=== PATIENT | male | born 1960 | race Caucasian/White ===

== ENCOUNTER 2020-04-08 14:10 | Inpatient (IN) | payer OTHER ==
[~2020-04-08] VITALS: Ht 167.6 cm; Wt 42.9 kg
[~2020-04-08 14:10] MED LIST: DULO30; DULO60; Daily Multiple1 EACH PO; FISH1000; FLUT44OIA; Flonase 0.05% N16 GM; GABA300 PO; Ginkgo Biloba40 M1 PO; Hydrochlorothia25 MG PO; LOSHYD; MONT10T PO; NAPR500 PO; NAPR500EC; OMEP20ER; Omeprazole20 M1 PO; POTA10T PO; QVAR7.3 G1; SIMV5; UBID10; VERA80; VITAMIN D32000 UNIT PO
[2020-04-08 14:52] LABS: BASOPHILS ABSOLUTE AUTO 0.02 K/mm3 (0.00-0.23); BASOPHILS PERCENT AUTO 0 % (0-2); EOSINOPHILS ABSOLUTE AUTO 0.01 K/mm3 (0.00-0.68); EOSINOPHILS PERCENT AUTO 0 % (0-6); Hematocrit 39.9 % (37.0-53.0); Hemoglobin 14.5 g/dL (13.5-17.5); IMMATURE GRAN ABSOLUTE AUTO 0.02 K/mm3 (0.00-0.10); IMMATURE GRAN PERCENT AUTO 0 % (0-1); LYMPHOCYTES ABSOLUTE AUTO 1.33 K/mm3 (0.84-5.20); LYMPHOCYTES PERCENT AUTO 12 % (21-46); MONOCYTES ABSOLUTE AUTO 0.84 K/mm3 (0.16-1.47); MONOCYTES PERCENT AUTO 7 % (4-13); Mean Corpuscular HGB 34.8 pg (26.0-34.0); Mean Corpuscular HGB Conc 36.3 g/dL (31.5-36.5); Mean Corpuscular Volume 96 fL (80-100); Mean Platelet Volume 9.8 fL (9.1-12.4); NEUTROPHILS ABSOLUTE AUTO 9.17 K/mm3 (1.96-9.15); NEUTROPHILS PERCENT AUTO 80 % (41-73); Platelet Count 255 K/mm3 (150-400); RDW Coefficient Variation 12.9 % (11.7-14.2); RDW Standard Deviation 45.4 fL (35.1-46.3); Red Blood Cell Count 4.17 M/mm3 (4.30-5.90); White Blood Cell Count 11.39 K/mm3 (4.00-11.30)
[2020-04-08 15:09] LABS: Alanine Aminotransfer (ALT/SGP 47 U/L (12-78); Albumin, Blood 3.6 g/dL (3.4-5.0); Albumin/Globulin Ratio 1.1 (0.8-1.8); Alk Phos 64 U/L (50-136); Anion Gap 11 mmol/L (6-16); Aspartate Aminotrans (AST/SGOT 56 U/L (12-37); Bilirubin, Total 0.8 mg/dL (0.1-1.0); Blood Urea Nitrogen 8 mg/dL (8-24); Bun/Creatinine Ratio 16.7 (12.0-20.0); CO2, Blood 26 mmol/L (21-32); Calcium, Blood 9.2 mg/dL (8.5-10.1); Chloride, Blood 95 mmol/L (98-108); Creatinine, Blood 0.48 mg/dL (0.60-1.20); Globulin, Blood 3.2 g/dL (2.2-4.0); Glomerular Filtration Rate >60 (60-); Glucose, Blood 102 mg/dL (70-99); Sodium, Blood 132 mmol/L (136-145); Total Protein, Blood 6.8 g/dL (6.4-8.2)
[2020-04-08] MEDS ORDERED: FLEVOXIN TABLE1 EACH PO (15:31)
[2020-04-08] MEDS ORDERED: Milk Thistle175 M1 PO (15:32)
[2020-04-08 17:54] LABS: Source, Urine Clean Catch
[2020-04-08 18:05] LABS: Troponin I <0.015 ng/mL (0.000-0.040)
[2020-04-08 18:15] LABS: Magnesium, Blood <0.2 mg/dL (1.6-2.4)
[2020-04-08 18:27] LABS: Appearance, Urine Clear (Clear); Bilirubin, Urine Neg (Neg); Blood, Urine Neg (Neg); Color, Urine Yellow (P-Yellow); Glucose Qualitative, Urine Neg (Neg); Ketones, Urine 4+ (Neg); Leukocyte Esterase, Urine Neg (Neg); Nitrite, Urine Neg (Neg); Protein, Urine 1+ (Neg); Urobilinogen, Urine NORM (Normal)
[2020-04-08] MEDS ORDERED: VERAPAMIL ER120 M1 PO (18:37)
[2020-04-08] MEDS ORDERED: POTA10T PO (18:37)
[2020-04-08] MEDS ORDERED: SIMV40 PO (18:37)
[2020-04-08] MEDS ORDERED: MONT10T PO (18:38)
[2020-04-08] MEDS ORDERED: FISH OIL 1,2001 EAC7 PO (18:45)
[2020-04-08] MEDS ORDERED: CO Q-10 PO (18:46)
--- NOTE | 2020-04-09 | NUR ---
PT ADMITTED TO ROOM ICU 8 UNDER PCU STATUS. PT SLIDE TRANSFERRED TO BED. PT ARRIVES TO ROOM AT 2310 THIS EVENING. NO APPARENT DISTRESS. NO S/S SEIZURE ACTIVITIES. NO COMPLAINTS OF PAIN AT THIS TIME. DOES STATE THAT HE HAS BEEN LOSING A LOT OF WEIGHT OF LATE SECONDARY TO NOT HAVING AN APPETITE OR BEING ABLE TO "HOLD ANYTHING DOWN." WILL REVIEW CHART AND PLAN OF CARE FOR THIS PT.
[2020-04-09 03:33] LABS: BASOPHILS ABSOLUTE AUTO 0.05 K/mm3 (0.00-0.23); BASOPHILS PERCENT AUTO 0 % (0-2); EOSINOPHILS ABSOLUTE AUTO 0.05 K/mm3 (0.00-0.68); EOSINOPHILS PERCENT AUTO 0 % (0-6); Hematocrit 41.6 % (37.0-53.0); Hemoglobin 14.6 g/dL (13.5-17.5); IMMATURE GRAN ABSOLUTE AUTO 0.06 K/mm3 (0.00-0.10); IMMATURE GRAN PERCENT AUTO 0 % (0-1); LYMPHOCYTES ABSOLUTE AUTO 1.95 K/mm3 (0.84-5.20); LYMPHOCYTES PERCENT AUTO 12 % (21-46); MONOCYTES ABSOLUTE AUTO 1.62 K/mm3 (0.16-1.47); MONOCYTES PERCENT AUTO 10 % (4-13); Mean Corpuscular HGB 33.6 pg (26.0-34.0); Mean Corpuscular HGB Conc 35.1 g/dL (31.5-36.5); Mean Corpuscular Volume 96 fL (80-100); Mean Platelet Volume 9.7 fL (9.1-12.4); NEUTROPHILS ABSOLUTE AUTO 12.86 K/mm3 (1.96-9.15); NEUTROPHILS PERCENT AUTO 77 % (41-73); Platelet Count 250 K/mm3 (150-400); RDW Coefficient Variation 12.6 % (11.7-14.2); RDW Standard Deviation 44.1 fL (35.1-46.3); Red Blood Cell Count 4.34 M/mm3 (4.30-5.90); White Blood Cell Count 16.59 K/mm3 (4.00-11.30)
[2020-04-09 03:50] LABS: Magnesium, Blood 1.6 mg/dL (1.6-2.4)
[2020-04-09 03:51] LABS: Anion Gap 5 mmol/L (6-16); Blood Urea Nitrogen 5 mg/dL (8-24); Bun/Creatinine Ratio 9.2 (12.0-20.0); CO2, Blood 32 mmol/L (21-32); Calcium, Blood 9.1 mg/dL (8.5-10.1); Chloride, Blood 97 mmol/L (98-108); Creatinine, Blood 0.54 mg/dL (0.60-1.20); Glomerular Filtration Rate >60 (60-); Glucose, Blood 99 mg/dL (70-99); Potassium, Blood 2.8 mmol/L (3.5-5.5); Sodium, Blood 134 mmol/L (136-145)
--- NOTE | 2020-04-09 04:00 | NUR ---
PT RECEIVES ADDITIONAL 2 GRAMS MAG SULFATE AFTER CALL TO DR BARROS - HOSPITALIST. PT HAS BEEN DROWSY UPON ADMIT. WAS GOOD HISTORIAN. PLEASANT AND COOPERATIVE WITH CARE AND ASSESSMENT. HAS BEEN ABLE TO MOVE SELF ABOUT IN BED ON HIS OWN.
--- NOTE | 2020-04-09 06:20 | NUR ---
PT REMAINS IN BED SLEEPING. AM LABS REVEAL K+ AT 2.8. CALL MADE TO DR FAUST WHEREAS ORDER FOR POTASSIUM DESHAUN RECEIVED. NO CHANGES TO NOTE FROM PREVIOUS ASSESSMENT. WILL CONTINUE TO MONITOR PT, AND WILL REPORT OFF TO ONCOMING RN.
--- NOTE | 2020-04-09 10:25 | NUR ---
[place] of Care: Care assumed at 0700hr. Patient alert and oriented x4. Denies pain, discomfort, SOB, or dyspnea. VSS, spO2 96-98% on RA. Peripheral IV x1 to rt forearm patent and intact, infusing without difficulty. Plan to speak with Dr. Jaime this morning r/t repeat Chem-8 labs following infusion of IV KCl. Using urinal in bed to void without difficulty. Calm and cooperative with staff, makes needs known. Tolerated clear liquid breakfast without difficulty, will also speak with Dr. Jaime r/t advancing diet as tolerated. Adjusting own position in bed. Will continue to monitor.
[2020-04-09 14:17] LABS: Albumin, Blood 3.1 g/dL (3.4-5.0); Anion Gap 7 mmol/L (6-16); Blood Urea Nitrogen 5 mg/dL (8-24); Bun/Creatinine Ratio 10.8 (12.0-20.0); CO2, Blood 27 mmol/L (21-32); Calcium, Blood 8.1 mg/dL (8.5-10.1); Chloride, Blood 98 mmol/L (98-108); Creatinine, Blood 0.47 mg/dL (0.60-1.20); Glomerular Filtration Rate >60 (60-); Glucose, Blood 210 mg/dL (70-99); Magnesium, Blood 1.9 mg/dL (1.6-2.4); Phosphorus, Blood 1.2 mg/dL (2.5-4.9); Sodium, Blood 132 mmol/L (136-145)
--- NOTE | 2020-04-09 18:21 | NUR ---
Shift Summary: No significant changes throughout shift. Patient remains a/o x4, denies pain, discomfort, SOB, or dyspnea. VS remain stable spO2 94-98% on RA. Peripheral iv's remain patent and intact. Voiding in urinal without difficulty, light yellow, clear urine. Adjust own position in bed, makes needs known. Spoke with Dr. Jaime this morning r/t lab values and advancing diet. Received orders this morning for 40meq PO KCl, x1 g IV Magnesium, advance diet as tolerated, and repeat renal panel with phos after magnesium has finished infusing. Repeat labs obtained this afternoon, and results discussed with Dr. Jaime. Received orders at that time for 30mm Kphos IV, change LR at 100ml/hr to NS at 100ml/hr, and repeat renal panel with phos when Kphos finished infusing. Kphos continues to infuse at this time, nurse notify placed for ordering repeat lab values. Patient tolerated clear liquids for breakfast and lunch, diet then advanced to full liquid for dinner tray, also tolerated without difficulty. Patient resting comfortably at this time, with at bedside. Will continue to monitor until report to NOC shift RN.
--- NOTE | 2020-04-09 19:20 | NUR ---
ASSUMED CARE OF PT, HE IS RESTING QUIETLY RECLINING IN BED, DENIES NEEDS AT THIS TIME.
[2020-04-09 22:25] LABS: Magnesium, Blood 1.4 mg/dL (1.6-2.4)
[2020-04-09 22:26] LABS: Albumin, Blood 3.1 g/dL (3.4-5.0); Anion Gap 7 mmol/L (6-16); Blood Urea Nitrogen 6 mg/dL (8-24); Bun/Creatinine Ratio 15.5 (12.0-20.0); CO2, Blood 28 mmol/L (21-32); Calcium, Blood 8.3 mg/dL (8.5-10.1); Chloride, Blood 98 mmol/L (98-108); Creatinine, Blood 0.39 mg/dL (0.60-1.20); Glomerular Filtration Rate >60 (60-); Glucose, Blood 63 mg/dL (70-99); Phosphorus, Blood 2.7 mg/dL (2.5-4.9); Potassium, Blood 3.6 mmol/L (3.5-5.5); Sodium, Blood 133 mmol/L (136-145)
--- NOTE | 2020-04-10 00:21 | NUR ---
PT RECEIVED FROM ICU WITH DX OF N/V. ALSO R/O COVID. PLACED ON PRECAUTIONS. ORIENTED TO ROOM, NOTED SEEMS UNSTEADY, INSTRUCTED TO USE CALL LIGHT PRIOR TO GETTING OUT OF BED FOR SAFETY REASINS, CALL LIGHT IN REACH. HOB ELEVATED FOR COMFORT. NS INFUSING AT 100 ML/HR.
--- NOTE | 2020-04-10 03:21 | NUR ---
SHIFT SUMMARY PT WAS TRANSFERRED FROM ICU TO FLOOR EARLIER, IVF OF NS INFUSING, RECEIVED MAGNESIUM IV PER MD ORDERS - SEE MAR FOR DETAILS. REMAINS IN ISOLATION UNTIL COVID IS RULED OUT. ALERT AND ORIENTED, BUT UNSTEADY ON FEET. INSTRUCTED TO USE CALL LIGHT BEFORE GETTING OUT OF BED, BED ALARM ON, CALL LIGHT IN REACH.
[2020-04-10 06:05] LABS: BASOPHILS ABSOLUTE AUTO 0.04 K/mm3 (0.00-0.23); BASOPHILS PERCENT AUTO 0 % (0-2); EOSINOPHILS PERCENT AUTO 1 % (0-6); Hematocrit 37.4 % (37.0-53.0); Hemoglobin 13.3 g/dL (13.5-17.5); IMMATURE GRAN ABSOLUTE AUTO 0.04 K/mm3 (0.00-0.10); IMMATURE GRAN PERCENT AUTO 0 % (0-1); LYMPHOCYTES ABSOLUTE AUTO 1.95 K/mm3 (0.84-5.20); LYMPHOCYTES PERCENT AUTO 17 % (21-46); MONOCYTES ABSOLUTE AUTO 1.12 K/mm3 (0.16-1.47); MONOCYTES PERCENT AUTO 10 % (4-13); Mean Corpuscular HGB 34.9 pg (26.0-34.0); Mean Corpuscular HGB Conc 35.6 g/dL (31.5-36.5); Mean Corpuscular Volume 98 fL (80-100); Mean Platelet Volume 9.9 fL (9.1-12.4); NEUTROPHILS ABSOLUTE AUTO 8.45 K/mm3 (1.96-9.15); NEUTROPHILS PERCENT AUTO 72 % (41-73); Platelet Count 225 K/mm3 (150-400); RDW Coefficient Variation 12.8 % (11.7-14.2); RDW Standard Deviation 45.5 fL (35.1-46.3); Red Blood Cell Count 3.81 M/mm3 (4.30-5.90)
[2020-04-10 06:10] LABS: Anion Gap 6 mmol/L (6-16); Blood Urea Nitrogen 5 mg/dL (8-24); CO2, Blood 27 mmol/L (21-32); Calcium, Blood 7.8 mg/dL (8.5-10.1); Chloride, Blood 99 mmol/L (98-108); Creatinine, Blood 0.39 mg/dL (0.60-1.20); Glomerular Filtration Rate >60 (60-); Glucose, Blood 97 mg/dL (70-99); Magnesium, Blood 2.2 mg/dL (1.6-2.4); Phosphorus, Blood 1.3 mg/dL (2.5-4.9); Potassium, Blood 3.5 mmol/L (3.5-5.5); Sodium, Blood 132 mmol/L (136-145)
[2020-04-10] MEDS ORDERED: BENZ100A PO (15:52)
[2020-04-10] MEDS ORDERED: ONDA4ODT MM (15:53)
[2020-04-10] MEDS ORDERED: PANT40 PO (15:53)
--- NOTE | 2020-04-10 17:02 | NUR ---
PT DISCHARGED THE PT AND HIS VERBALIZED UNDERSTANDING OF THE DC INSTRUCTIONS, PT WAS REMINDED TO CALL FOR AND SCHEDULE FOLLOW UP APPOINTMENTS ON SUNDAY, THE PTS PRESCRIPTIONS WERE FAXED TO [facility] REQUESTED, THE PT TRANSFERED VIA WHEELCHAIR ACCOMPANIED BY THE TIMBER RIDER AND HIS , PT APPEARED TO BE BREATHING EASILY AT THE TIME OF DC
== END 2020-04-10 16:23 | disposition home health service (06) | DRG 391 ==
LOC: ER 14:10 → ICUE 22:57 → ICUW 22:57 → ICUE 23:00 → MEDS 04-09 23:55
PROVIDERS: Emergency Medicine; Internal Medicine; ADMIT Internal Medicine
DX: K29.00 Acute gastritis without bleeding (principal); E43 Unspecified severe protein-calorie malnutrition; E87.1 Hypo-osmolality and hyponatremia; G40.89 Other seizures; Z68.1 Body mass index [BMI] 19.9 or less, adult; E83.42 Hypomagnesemia; R11.2 Nausea with vomiting, unspecified; E87.6 Hypokalemia; R27.0 Ataxia, unspecified; I10 Essential (primary) hypertension; E78.5 Hyperlipidemia, unspecified; F17.210 Nicotine dependence, cigarettes, uncomplicated
CPT/HCPCS: 36415; 70450; 70551; 71045; 74177; 80048; 80053; 80069; 83605; 83690; 83735; 84443; 84484; 85025; 93005; 93010; 96361; 96365-59; 96367; 97110; 97116; 97162; 97166; 97530; 99285-25; A9270; C9113; J1953; J2060; J3475; J3480; J7030; J7060; J7120; Q0163; Q9967; U0003

== ENCOUNTER 2020-04-11 10:36 | Inpatient (IN) | payer OTHER ==
[~2020-04-11] VITALS: Ht 167.6 cm; Wt 46.1 kg
[~2020-04-11 10:36] MED LIST changes: +BENZ100A PO; +CO Q-10 100 MG1 EAC1 PO; +FISH OIL 1,2001 EAC7 PO; +FLEVOXIN TABLE1 EACH PO; +Milk Thistle175 M1 PO; +ONDA4ODT MM; +PANT40 PO; +SIMV40 PO; +VERAPAMIL ER120 M1 PO
[2020-04-11 11:24] LABS: BASOPHILS ABSOLUTE AUTO 0.04 K/mm3 (0.00-0.23); BASOPHILS PERCENT AUTO 0 % (0-2); EOSINOPHILS ABSOLUTE AUTO 0.08 K/mm3 (0.00-0.68); EOSINOPHILS PERCENT AUTO 1 % (0-6); Hematocrit 40.8 % (37.0-53.0); Hemoglobin 14.3 g/dL (13.5-17.5); IMMATURE GRAN ABSOLUTE AUTO 0.03 K/mm3 (0.00-0.10); IMMATURE GRAN PERCENT AUTO 0 % (0-1); LYMPHOCYTES ABSOLUTE AUTO 1.81 K/mm3 (0.84-5.20); LYMPHOCYTES PERCENT AUTO 18 % (21-46); MONOCYTES ABSOLUTE AUTO 0.92 K/mm3 (0.16-1.47); MONOCYTES PERCENT AUTO 9 % (4-13); Mean Corpuscular HGB 35.3 pg (26.0-34.0); Mean Corpuscular Volume 101 fL (80-100); Mean Platelet Volume 9.9 fL (9.1-12.4); NEUTROPHILS ABSOLUTE AUTO 7.22 K/mm3 (1.96-9.15); NEUTROPHILS PERCENT AUTO 72 % (41-73); Platelet Count 251 K/mm3 (150-400); RDW Coefficient Variation 12.7 % (11.7-14.2); RDW Standard Deviation 46.5 fL (35.1-46.3); Red Blood Cell Count 4.05 M/mm3 (4.30-5.90)
[2020-04-11 11:32] LABS: Alanine Aminotransfer (ALT/SGP 69 U/L (12-78); Albumin, Blood 3.5 g/dL (3.4-5.0); Albumin/Globulin Ratio 0.9 (0.8-1.8); Alk Phos 81 U/L (50-136); Anion Gap 5 mmol/L (6-16); Aspartate Aminotrans (AST/SGOT 56 U/L (12-37); Bilirubin, Total 0.8 mg/dL (0.1-1.0); Blood Urea Nitrogen 6 mg/dL (8-24); Bun/Creatinine Ratio 15.1 (12.0-20.0); CO2, Blood 29 mmol/L (21-32); Chloride, Blood 99 mmol/L (98-108); Globulin, Blood 3.7 g/dL (2.2-4.0); Glomerular Filtration Rate >60 (60-); Glucose, Blood 102 mg/dL (70-99); Magnesium, Blood 1.6 mg/dL (1.6-2.4); Phosphorus, Blood 2.2 mg/dL (2.5-4.9); Potassium, Blood 3.8 mmol/L (3.5-5.5); Sodium, Blood 133 mmol/L (136-145); Total Protein, Blood 7.2 g/dL (6.4-8.2)
[2020-04-11 13:40] LABS: Source, Urine Clean Catch
[2020-04-11 13:44] LABS: Appearance, Urine Clear (Clear); Bilirubin, Urine Neg (Neg); Blood, Urine Neg (Neg); Color, Urine Yellow (P-Yellow); Glucose Qualitative, Urine Neg (Neg); Ketones, Urine Neg (Neg); Leukocyte Esterase, Urine Neg (Neg); Nitrite, Urine Neg (Neg); Protein, Urine Neg (Neg); Urobilinogen, Urine NORM (Normal)
--- NOTE | 2020-04-11 18:32 | NUR ---
SHIFT SUMMARY- PT ARRIVED TO THE UNIT AT 1339. HE WAS ORIENTED TO THE ROOM. HE IS RUNNING ON IV FLUIDS. HE TOOK A SHOWER. AT BEDSIDE FOR SEVERAL HOURS.
--- NOTE | 2020-04-11 22:26 | NUR ---
SOME DISPLAY OF IRRITATION WITH STAFF HE TRIED TO GET OUT OF BED AND WAS ENCOURAGED TO BE SAFE. THEN LAUGHED. RELAYED INFORMATION OF PT LABILE BEHAVIOR AT HOME WHICH HEPLED HER MAKE THE DECISION TO BRING HIM BACK TO THE [facility] FOR TERATMENT. SHE ALSO SKED THAT WE NOT USE THE WORD "REHAB" IT SEEMED TO SET HIM OFF WHEN SHE USED IT AT HOME. IVF OF NS INFUSINT AT 75 ML/HR. IV THIAMINE INFUSING. CALL LIGHT IN REACH. RESTING QUIETLY AT THIS TIME. RAILS UP X 3
--- NOTE | 2020-04-12 03:23 | NUR ---
SHIFT SUMMARY EARLIER PT APPEARED QUITE CONFUSED, TRYING TO GET OUT OF BED WHEN THE IV WAS BEEPING. BECAME HOSTILE WITH STAFF BUT LATER WAS ABLE TO BE REDIRECTED. IVF ON NS INFUSING. RECEIVED IV THIAMINE EARLIER, HAS BEEN RESTING QUIETLY SINCE. CALL LIGHT IN REACH. CIWA 6 OR LESS.
[2020-04-12 05:41] LABS: Albumin, Blood 3.1 g/dL (3.4-5.0); Anion Gap 8 mmol/L (6-16); Blood Urea Nitrogen 9 mg/dL (8-24); Bun/Creatinine Ratio 20.7 (12.0-20.0); CO2, Blood 24 mmol/L (21-32); Calcium, Blood 8.7 mg/dL (8.5-10.1); Chloride, Blood 98 mmol/L (98-108); Creatinine, Blood 0.43 mg/dL (0.60-1.20); Glomerular Filtration Rate >60 (60-); Glucose, Blood 104 mg/dL (70-99); Magnesium, Blood 1.7 mg/dL (1.6-2.4); Phosphorus, Blood 2.6 mg/dL (2.5-4.9); Potassium, Blood 3.7 mmol/L (3.5-5.5); Sodium, Blood 130 mmol/L (136-145)
--- NOTE | 2020-04-12 19:31 | NUR ---
SHIFT SUMMARY: NO ACUTE CHANGES TO REPORT THIS SHIFT. PT ALERT; HX ETOH; OCC CONFUSION & HALLUCINATIONS; COOPERATIVE WITH CARE. REHYDRATION CONTINUING; AWAITING GI CONSULT-NO GI DR STAMP COLLECTOR TODAY. REPORT GIVEN TO ONCOMING RN.
--- NOTE | 2020-04-12 21:19 | NUR ---
DR Underwood notified of family request for liver function test. Liver function panel order for am.
--- NOTE | 2020-04-13 04:50 | NUR ---
59 year old Male who was just dc from [facility] readmitted with AMS. He is rousable & oriented without sx of acute withdrawl. PT says last drink was Sunday vauge about amt & type of etoh he consumes. PT up with standby assist voids large amts. On IV fluids with minimal oral intake. declined supplement. no complaints. Sleeping most of 12 hour shift.
[2020-04-13 05:52] LABS: Albumin/Globulin Ratio 0.9 (0.8-1.8); Bilirubin, Direct 0.1 mg/dL (0.0-0.3); Bilirubin, Indirect 0.4 mg/dL (0.1-0.7); Bilirubin, Total 0.5 mg/dL (0.1-1.0); Globulin, Blood 3.3 g/dL (2.2-4.0); Total Protein, Blood 6.3 g/dL (6.4-8.2)
--- NOTE | 2020-04-13 15:42 | NUR ---
04/13/20 1542 Lev Loving See Anesthesia record.
[2020-04-13] MEDS ORDERED: MAGNESIUM OXID500 MG PO (15:46)
[2020-04-13] MEDS ORDERED: Vitamin B Comple1 EA PO (15:47)
--- NOTE | 2020-04-13 19:24 | NUR ---
PATIENT DISCHARGE: PATIENT DISCHARGED TO HOME / XFR TO [facility] THIS SHIFT. MEDICATION RECONCILIATION COMPLETED; MED LSIT FAXED TO [facility]. DISCHARGE EDUCATION COMPLETED WITH PATIENT AND SPOUSE. PATIENT TRANSPORTED TO EXIT BY [facility] STAFF WITH WHEELCHAIR AT 1850. PATIENT DEPARTED [facility] VIA PRIVATE AUTO.
== END 2020-04-13 18:56 | disposition home health service (06) | DRG 640 ==
LOC: ER 10:36 → MEDS 13:30
PROVIDERS: Emergency Medicine; Internal Medicine; Student in an Organized Health Care Education/Training Program; ADMIT Internal Medicine
PROC: 0DB68ZX Excision of Stomach, Via Natural or Artificial Opening Endoscopic, Diagnostic (ICD-10-PCS; principal; 2020-04-13 17:30)
DX: E51.2 Wernicke's encephalopathy (principal); E43 Unspecified severe protein-calorie malnutrition; Z68.1 Body mass index [BMI] 19.9 or less, adult; E87.1 Hypo-osmolality and hyponatremia; E83.39 Other disorders of phosphorus metabolism; I10 Essential (primary) hypertension; F17.210 Nicotine dependence, cigarettes, uncomplicated
CPT/HCPCS: 36415; 80053; 80069; 80076; 81003; 82607; 82746; 83735; 84100; 85025; 93005; 93010; 96365; 96372-59; 96375; 97110; 97112; 97116; 97162; 97165; 97535; 99285-25; A9270-GY; J1650; J2250; J2370; J2704; J3411; J3475; J7030; J7042; J7060; J7120

== ENCOUNTER 2022-08-31 14:08 | Emergency (ER) | payer OTHER ==
[~2022-08-31] VITALS: Ht 167.6 cm; Wt 52.2 kg
[~2022-08-31 14:08] MED LIST changes: +COENZYME Q 10 PO; +MAGNESIUM OXID500 MG PO; +VITAMIN E PO; +Vitamin B Comple1 EA PO
[2022-08-31] MEDS ORDERED: FAMO20 PO (20:04)
== END 2022-08-31 20:20 | disposition home or self-care (01) ==
LOC: ER 14:08
DX: E83.42 Hypomagnesemia (principal); T47.1X5A Adverse effect of other antacids and anti-gastric-secretion drugs, initial encounter; I10 Essential (primary) hypertension; E78.5 Hyperlipidemia, unspecified; F17.210 Nicotine dependence, cigarettes, uncomplicated; Z79.899 Other long term (current) drug therapy
CPT/HCPCS: 96365; 99282-25; A9270; J3475